=== PATIENT | female | born 1945 | race Caucasian/White ===

== ENCOUNTER 2020-11-07 16:30 | Inpatient (IN) ==
[2020-11-07] MEDS ORDERED: Ondansetron 4 MG/2 ML VIAL IVP PRN (17:51)
[2020-11-07] MEDS ORDERED: Naloxone 0.4 MG/ML INJ IVP PRN (17:51)
[2020-11-07] MEDS ORDERED: *HR* Dextrose 50 % in Water (Vial) 50 ML VIAL IVP PRN (18:00)
[2020-11-07] MEDS ORDERED: D5% in Water 1,000 ML IVC PRN (18:00)
[2020-11-07] MEDS ORDERED: Dextrose Gel 15 GM/37.5 ML TUBE PO PRN ×2 (18:00)
[2020-11-07] MEDS ORDERED: Doxycycline 100 MG in 0.9 % Sodium Chloride Mini Bag 100 ML IVPB SCH (18:00)
[2020-11-07] MEDS ORDERED: Benzonatate 100 MG CAPSULE PO PRN (21:00)
[2020-11-07] MEDS ORDERED: Ibuprofen 400 MG TABLET PO PRN (21:28)
[2020-11-07] MEDS: Ipratropium 1 PUFF INHALER IH SCH ×2 (21:32→23:24)
[2020-11-07] MEDS: Lactobacillus 1 EACH CAP.SPRINK PO SCH (23:12)
[2020-11-07] MEDS: Doxycycline 100 MG in 0.9 % Sodium Chloride Mini Bag 100 ML IVPB SCH (23:12)
[2020-11-07] MEDS: Insulin LISPRO 300 UNITS/3 ML VIAL SUBQ SCH (23:18)
[2020-11-07] MEDS: Melatonin 3 MG TABLET PO PRN (23:25)
[2020-11-08] MEDS: Ipratropium 1 PUFF INHALER IH SCH ×5 (04:01→21:16)
[2020-11-08] MEDS: *HR* Enoxaparin 40 MG/0.4 ML SYRINGE SQ SCH (05:22)
[2020-11-08] MEDS: Budesonide/Formoterol 160/4.5 1 PUFF INH IH SCH ×2 (06:41→21:15)
[2020-11-08] MEDS: Tiotropium 10 INH DOSE IH SCH (06:41)
[2020-11-08 08:25] LABS: Hematocrit 30.5 % (35.3-44.9); Hemoglobin 9.9 g/dL (11.5-15.4); Mean Corpuscular HGB Conc 32.5 g/dL (31.6-35.5); Mean Corpuscular Hemoglobin 29.8 pg (28.0-33.3); Mean Corpuscular Volume 91.9 fL (83.0-100.0); Mean Platelet Volume 10.6 fL (9.4-12.4); Platelet Count 270 K/mcL (140-400); Red Blood Count 3.32 M/mcL (3.82-4.97); Red Cell Distribution Width 15.4 % (11.5-14.5); White Blood Count 11.8 K/mcL (4.3-11.1)
[2020-11-08] MEDS: Insulin LISPRO 300 UNITS/3 ML VIAL SUBQ SCH ×4 (08:33→21:21)
[2020-11-08] MEDS: Loratadine 10 MG TABLET PO SCH (08:45)
[2020-11-08] MEDS: Vitamin E 200 UNIT (90MG) CAPSULE PO SCH (08:45)
[2020-11-08] MEDS: Ascorbic Acid 500 MG TABLET PO SCH (08:45)
[2020-11-08] MEDS: Cholecalciferol (D-3) 1,000 UNIT (25MCG) TABLET PO SCH (08:45)
[2020-11-08] MEDS: Aspirin Enteric Coated 81 MG Tablet PO SCH (08:45)
[2020-11-08] MEDS: Lactobacillus 1 EACH CAP.SPRINK PO SCH ×2 (08:45→21:13)
[2020-11-08] MEDS: *HR* Glimepiride 2 MG TABLET PO SCH (08:46)
[2020-11-08] MEDS ORDERED: Dexamethasone Sodium Phos/PF 10 MG/ML VIAL IVP SCH (09:00)
[2020-11-08 09:06] LABS: BUN/Creatinine Ratio 34 (6-26); Blood Urea Nitrogen 33 mg/dL (8-23); Calcium 8.2 mg/dL (8.6-10.3); Carbon Dioxide 24 mEq/L (23-29); Chloride 104 mEq/L (98-107); Glucose 105 mg/dL (70-105); Osmolality,Calculated 294 (280-300); Potassium 3.4 mEq/L (3.5-5.1); Sodium 138 mEq/L (136-145); eGFR For African Americans > 60 (> 60); eGFR For Non-African Americans 57 (> 60)
[2020-11-08] MEDS: Doxycycline 100 MG in 0.9 % Sodium Chloride Mini Bag 100 ML IVPB SCH (11:52)
[2020-11-08 13:22] LABS: Estimated Average Glucose 163 mg/dl; Hemoglobin A1C 7.3 %
[2020-11-08] MEDS: Doxycycline 100 MG CAPSULE PO SCH (21:13)
[2020-11-08] MEDS: Melatonin 3 MG TABLET PO PRN (21:19)
[2020-11-09] MEDS: Ipratropium 1 PUFF INHALER IH SCH ×4 (00:43→12:52)
[2020-11-09] MEDS: *HR* Enoxaparin 40 MG/0.4 ML SYRINGE SQ SCH (04:32)
[2020-11-09] MEDS: Insulin LISPRO 300 UNITS/3 ML VIAL SUBQ SCH ×2 (08:14→12:25)
[2020-11-09] MEDS: Budesonide/Formoterol 160/4.5 1 PUFF INH IH SCH (08:16)
[2020-11-09] MEDS ORDERED: dexAMETHasone 4 MG TABLET PO SCH (09:00)
[2020-11-09] MEDS: Lactobacillus 1 EACH CAP.SPRINK PO SCH (09:28)
[2020-11-09] MEDS: Vitamin E 200 UNIT (90MG) CAPSULE PO SCH (09:28)
[2020-11-09] MEDS: Tiotropium 10 INH DOSE IH SCH (09:28)
[2020-11-09] MEDS: Ascorbic Acid 500 MG TABLET PO SCH (09:29)
[2020-11-09] MEDS: Doxycycline 100 MG CAPSULE PO SCH (09:29)
[2020-11-09] MEDS: Cholecalciferol (D-3) 1,000 UNIT (25MCG) TABLET PO SCH (09:29)
[2020-11-09] MEDS: Aspirin Enteric Coated 81 MG Tablet PO SCH (09:29)
[2020-11-09] MEDS: Loratadine 10 MG TABLET PO SCH (09:30)
[2020-11-09] MEDS: *HR* Glimepiride 2 MG TABLET PO SCH (09:30)
[2020-11-09] MEDS ORDERED: Fluticasone Propionate Nasal 50 MCG/SPRAY BOTTLE NS SCH (14:45)
[2020-11-09 15:02] VITALS: BP 120/69
== END 2020-11-09 15:58 | disposition other institution (70) | DRG 177 ==
LOC: INPGRE 21:08
PROVIDERS: ADMIT Family Medicine; ATTEND Family Medicine

== ENCOUNTER 2020-11-08 19:02 | Inpatient (IN) ==
[2020-11-09] MEDS ORDERED: *HR* Dextrose 50 % in Water (Vial) 50 ML VIAL IVP PRN (16:23)
[2020-11-09] MEDS ORDERED: Dextrose Gel 15 GM/37.5 ML TUBE PO PRN ×2 (16:23)
[2020-11-09] MEDS ORDERED: D5% in Water 1,000 ML IVC PRN (16:23)
[2020-11-09] MEDS ORDERED: DEXAMETHASONE 1.5 MG PO SCH (16:30)
[2020-11-09] MEDS ORDERED: Ondansetron 4 MG/2 ML VIAL IVP PRN (16:33)
[2020-11-09] MEDS ORDERED: Naloxone 0.4 MG/ML INJ IVP PRN (16:33)
[2020-11-09] MEDS: Ipratropium 1 PUFF INHALER IH SCH ×2 (16:54→20:31)
[2020-11-09] MEDS: Insulin LISPRO 300 UNITS/3 ML VIAL SUBQ SCH ×2 (18:38→23:08)
[2020-11-09] MEDS: Budesonide/Formoterol 160/4.5 1 PUFF INH IH SCH (20:32)
[2020-11-09] MEDS: Doxycycline 100 MG CAPSULE PO SCH (22:51)
[2020-11-09] MEDS: Melatonin 3 MG TABLET PO PRN (22:51)
[2020-11-09] MEDS: Lactobacillus 1 EACH CAP.SPRINK PO SCH (22:52)
[2020-11-10] MEDS: Ipratropium 1 PUFF INHALER IH SCH ×7 (00:30→23:51)
[2020-11-10] MEDS: *HR* Enoxaparin 40 MG/0.4 ML SYRINGE SQ SCH (07:05)
[2020-11-10] MEDS: Insulin LISPRO 300 UNITS/3 ML VIAL SUBQ SCH ×4 (08:39→21:38)
[2020-11-10] MEDS: Budesonide/Formoterol 160/4.5 1 PUFF INH IH SCH ×2 (08:57→20:05)
[2020-11-10] MEDS ORDERED: NON-FORMULARY MEDICATION 1 EACH EACH (Fluticasone/Umeclidin/Vilanter [Trelegy Ellipta 100- IH SCH (09:00)
[2020-11-10] MEDS: Loratadine 10 MG TABLET PO SCH (09:43)
[2020-11-10] MEDS: Cholecalciferol (D-3) 1,000 UNIT (25MCG) TABLET PO SCH (09:44)
[2020-11-10] MEDS: Aspirin Enteric Coated 81 MG Tablet PO SCH (09:44)
[2020-11-10] MEDS: Ascorbic Acid 500 MG TABLET PO SCH (09:44)
[2020-11-10] MEDS: Vitamin E 200 UNIT (90MG) CAPSULE PO SCH (09:44)
[2020-11-10] MEDS: Lactobacillus 1 EACH CAP.SPRINK PO SCH ×2 (09:44→21:35)
[2020-11-10] MEDS: dexAMETHasone 4 MG TABLET PO SCH (09:44)
[2020-11-10] MEDS: Doxycycline 100 MG CAPSULE PO SCH ×2 (09:45→21:35)
[2020-11-10] MEDS: *HR* Glimepiride 2 MG TABLET PO SCH (09:55)
[2020-11-10] MEDS ORDERED: Tiotropium 10 INH DOSE IH SCH (10:00)
[2020-11-10] MEDS: Fluticasone Propionate Nasal 50 MCG/SPRAY BOTTLE NS SCH (10:39)
[2020-11-10] MEDS: Melatonin 3 MG TABLET PO PRN (21:32)
[2020-11-10] MEDS: Benzonatate 100 MG CAPSULE PO PRN (21:35)
[2020-11-11] MEDS: Ipratropium 1 PUFF INHALER IH SCH ×5 (04:10→22:18)
[2020-11-11 05:25] LABS: Basophils # 0.1 K/mcL (0.0-0.2); Basophils % 0.4 %; Eosinophils % 0.2 %; Hematocrit 30.5 % (35.3-44.9); Hemoglobin 9.7 g/dL (11.5-15.4); Lymphocytes # 2.6 K/mcL (0.6-4.6); Lymphocytes % 17.4 %; Mean Corpuscular HGB Conc 31.8 g/dL (31.6-35.5); Mean Corpuscular Hemoglobin 29.8 pg (28.0-33.3); Mean Corpuscular Volume 93.6 fL (83.0-100.0); Mean Platelet Volume 11.2 fL (9.4-12.4); Monocytes # 1.1 K/mcL (0.0-1.3); Monocytes % 7.1 %; Neutrophils # 10.5 K/mcL (1.6-8.9); Nucleated Red Blood Cells 0.2 /100 WBC (0); Red Blood Count 3.26 M/mcL (3.82-4.97); Red Cell Distribution Width 15.6 % (11.5-14.5); Segmented Neutrophils % 70.9 %; White Blood Count 14.8 K/mcL (4.3-11.1)
[2020-11-11 05:29] LABS: Platelet Count 181 K/mcL (140-400)
[2020-11-11 05:37] LABS: BUN/Creatinine Ratio 40 (6-26); Blood Urea Nitrogen 36 mg/dL (8-23); Calcium 8.2 mg/dL (8.6-10.3); Carbon Dioxide 22 mEq/L (23-29); Chloride 105 mEq/L (98-107); Glucose 82 mg/dL (70-105); Osmolality,Calculated 293 (280-300); Potassium 3.5 mEq/L (3.5-5.1); Sodium 138 mEq/L (136-145); eGFR For African Americans > 60 (> 60); eGFR For Non-African Americans > 60 (> 60)
[2020-11-11] MEDS: *HR* Enoxaparin 40 MG/0.4 ML SYRINGE SQ SCH (06:59)
[2020-11-11] MEDS: Budesonide/Formoterol 160/4.5 1 PUFF INH IH SCH ×2 (08:18→22:18)
[2020-11-11] MEDS: Insulin LISPRO 300 UNITS/3 ML VIAL SUBQ SCH ×4 (08:49→22:08)
[2020-11-11] MEDS: dexAMETHasone 4 MG TABLET PO SCH (09:05)
[2020-11-11] MEDS: Vitamin E 200 UNIT (90MG) CAPSULE PO SCH (09:06)
[2020-11-11] MEDS: Loratadine 10 MG TABLET PO SCH (09:06)
[2020-11-11] MEDS: Aspirin Enteric Coated 81 MG Tablet PO SCH (09:06)
[2020-11-11] MEDS: Ascorbic Acid 500 MG TABLET PO SCH (09:06)
[2020-11-11] MEDS: Fluticasone Propionate Nasal 50 MCG/SPRAY BOTTLE NS SCH (09:07)
[2020-11-11] MEDS: Doxycycline 100 MG CAPSULE PO SCH ×2 (09:07→22:33)
[2020-11-11] MEDS: Lactobacillus 1 EACH CAP.SPRINK PO SCH ×2 (09:07→22:34)
[2020-11-11] MEDS: Cholecalciferol (D-3) 1,000 UNIT (25MCG) TABLET PO SCH (09:07)
[2020-11-11] MEDS: *HR* Glimepiride 2 MG TABLET PO SCH (09:59)
[2020-11-11] MEDS: Benzonatate 100 MG CAPSULE PO PRN (22:33)
[2020-11-11] MEDS: Melatonin 3 MG TABLET PO PRN (22:37)
[2020-11-12] MEDS: Ipratropium 1 PUFF INHALER IH SCH ×4 (03:43→19:44)
[2020-11-12] MEDS: *HR* Enoxaparin 40 MG/0.4 ML SYRINGE SQ SCH (06:00)
[2020-11-12] MEDS: Aspirin Enteric Coated 81 MG Tablet PO SCH (08:01)
[2020-11-12] MEDS: Lactobacillus 1 EACH CAP.SPRINK PO SCH ×2 (08:01→21:43)
[2020-11-12] MEDS: Ascorbic Acid 500 MG TABLET PO SCH (08:01)
[2020-11-12] MEDS: Vitamin E 200 UNIT (90MG) CAPSULE PO SCH (08:02)
[2020-11-12] MEDS: dexAMETHasone 4 MG TABLET PO SCH (08:02)
[2020-11-12] MEDS: Loratadine 10 MG TABLET PO SCH (08:02)
[2020-11-12] MEDS: Fluticasone Propionate Nasal 50 MCG/SPRAY BOTTLE NS SCH (08:03)
[2020-11-12] MEDS: Insulin LISPRO 300 UNITS/3 ML VIAL SUBQ SCH ×4 (08:03→21:45)
[2020-11-12] MEDS: Cholecalciferol (D-3) 1,000 UNIT (25MCG) TABLET PO SCH (08:04)
[2020-11-12] MEDS: *HR* Glimepiride 2 MG TABLET PO SCH (08:11)
[2020-11-12] MEDS: Benzonatate 100 MG CAPSULE PO PRN ×2 (08:12→21:37)
[2020-11-12] MEDS: Budesonide/Formoterol 160/4.5 1 PUFF INH IH SCH ×2 (08:58→19:46)
[2020-11-12] MEDS: Doxycycline 100 MG CAPSULE PO SCH ×2 (12:54→21:40)
[2020-11-12] MEDS: Melatonin 3 MG TABLET PO PRN (21:38)
[2020-11-13 04:24] LABS: Hematocrit 27.1 % (35.3-44.9); Hemoglobin 8.8 g/dL (11.5-15.4); Mean Corpuscular HGB Conc 32.5 g/dL (31.6-35.5); Mean Corpuscular Hemoglobin 30.1 pg (28.0-33.3); Mean Corpuscular Volume 92.8 fL (83.0-100.0); Mean Platelet Volume 10.3 fL (9.4-12.4); Platelet Count 194 K/mcL (140-400); Red Blood Count 2.92 M/mcL (3.82-4.97); Red Cell Distribution Width 15.8 % (11.5-14.5)
[2020-11-13 04:41] LABS: Alanine Aminotransferase 16 Units/L (7-52); Albumin 2.5 g/dL (3.5-5.7); Albumin/Globulin Ratio 1.2 (1.1-2.2); Alkaline Phosphatase 37 Units/L (34-104); Aspartate Amino Transferase 10 Units/L (13-39); BUN/Creatinine Ratio 39 (6-26); Bilirubin,Total 0.5 mg/dL (0.3-1.0); Blood Urea Nitrogen 42 mg/dL (8-23); Calcium 7.8 mg/dL (8.6-10.3); Carbon Dioxide 23 mEq/L (23-29); Chloride 106 mEq/L (98-107); Globulin 2.1 g/dL (2.4-3.5); Glucose 67 mg/dL (70-105); Osmolality,Calculated 291 (280-300); Potassium 3.7 mEq/L (3.5-5.1); Sodium 136 mEq/L (136-145); Total Protein 4.6 g/dL (6.4-8.9); eGFR For African Americans 59 (> 60); eGFR For Non-African Americans 49 (> 60)
[2020-11-13] MEDS: Ipratropium 1 PUFF INHALER IH SCH ×7 (04:58→22:53)
[2020-11-13] MEDS: *HR* Enoxaparin 40 MG/0.4 ML SYRINGE SQ SCH (05:14)
[2020-11-13] MEDS: Budesonide/Formoterol 160/4.5 1 PUFF INH IH SCH ×2 (07:54→20:03)
[2020-11-13] MEDS: Insulin LISPRO 300 UNITS/3 ML VIAL SUBQ SCH ×4 (09:31→21:38)
[2020-11-13] MEDS: Vitamin E 200 UNIT (90MG) CAPSULE PO SCH (09:34)
[2020-11-13] MEDS: Cholecalciferol (D-3) 1,000 UNIT (25MCG) TABLET PO SCH (09:34)
[2020-11-13] MEDS: *HR* Glimepiride 2 MG TABLET PO SCH (09:34)
[2020-11-13] MEDS: Lactobacillus 1 EACH CAP.SPRINK PO SCH ×2 (09:34→20:07)
[2020-11-13] MEDS: dexAMETHasone 4 MG TABLET PO SCH (09:35)
[2020-11-13] MEDS: Aspirin Enteric Coated 81 MG Tablet PO SCH (09:35)
[2020-11-13] MEDS: Loratadine 10 MG TABLET PO SCH (09:36)
[2020-11-13] MEDS: Ascorbic Acid 500 MG TABLET PO SCH (09:36)
[2020-11-13] MEDS: Fluticasone Propionate Nasal 50 MCG/SPRAY BOTTLE NS SCH (10:11)
[2020-11-13 10:12] LABS: C-Reactive Protein < 5 mg/L (Less than 10)
[2020-11-13 10:30] LABS: Ferritin 161 ng/mL (10-120)
[2020-11-13] MEDS ORDERED: levoFLOXacin 750 MG/150 ML 750 MG/150 ML BAG IVPB SCH (14:45)
[2020-11-13] MEDS ORDERED: levoFLOXacin 500 MG TABLET PO ONE (16:00)
[2020-11-13] MEDS: Acyclovir 200 MG CAPSULE PO SCH ×2 (16:52→20:07)
[2020-11-13] MEDS: Magnesium Oxide 400 MG TABLET PO SCH (20:09)
[2020-11-13] MEDS ORDERED: Magnesium Oxide 400 MG TABLET PO SCH (21:00)
[2020-11-13] MEDS: Melatonin 3 MG TABLET PO PRN (21:40)
[2020-11-14] MEDS: Ibuprofen 400 MG TABLET PO PRN ×2 (02:43→21:07)
[2020-11-14] MEDS: Ipratropium 1 PUFF INHALER IH SCH ×5 (02:58→20:21)
[2020-11-14 05:46] LABS: Hematocrit 27.7 % (35.3-44.9); Mean Corpuscular HGB Conc 32.5 g/dL (31.6-35.5); Mean Corpuscular Hemoglobin 29.9 pg (28.0-33.3); Mean Platelet Volume 10.5 fL (9.4-12.4); Platelet Count 179 K/mcL (140-400); Red Blood Count 3.01 M/mcL (3.82-4.97); Red Cell Distribution Width 16.2 % (11.5-14.5); White Blood Count 11.3 K/mcL (4.3-11.1)
[2020-11-14] MEDS: *HR* Enoxaparin 40 MG/0.4 ML SYRINGE SQ SCH (06:01)
[2020-11-14 06:06] LABS: Alanine Aminotransferase 18 Units/L (7-52); Albumin 2.7 g/dL (3.5-5.7); Albumin/Globulin Ratio 1.4 (1.1-2.2); Alkaline Phosphatase 40 Units/L (34-104); Aspartate Amino Transferase 11 Units/L (13-39); BUN/Creatinine Ratio 43 (6-26); Bilirubin,Total 0.6 mg/dL (0.3-1.0); Blood Urea Nitrogen 46 mg/dL (8-23); Calcium 7.9 mg/dL (8.6-10.3); Carbon Dioxide 23 mEq/L (23-29); Chloride 103 mEq/L (98-107); Glucose 73 mg/dL (70-105); Magnesium 1.2 mg/dL (1.6-2.6); Osmolality,Calculated 290 (280-300); Potassium 3.5 mEq/L (3.5-5.1); Sodium 135 mEq/L (136-145); Total Protein 4.7 g/dL (6.4-8.9); eGFR For African Americans > 60 (> 60); eGFR For Non-African Americans 50 (> 60)
[2020-11-14] MEDS: Insulin LISPRO 300 UNITS/3 ML VIAL SUBQ SCH ×4 (07:35→21:06)
[2020-11-14] MEDS: Budesonide/Formoterol 160/4.5 1 PUFF INH IH SCH ×2 (07:53→20:21)
[2020-11-14] MEDS: Aspirin Enteric Coated 81 MG Tablet PO SCH (08:32)
[2020-11-14] MEDS: Lactobacillus 1 EACH CAP.SPRINK PO SCH ×2 (08:32→21:06)
[2020-11-14] MEDS: Vitamin E 200 UNIT (90MG) CAPSULE PO SCH (08:33)
[2020-11-14] MEDS: Ascorbic Acid 500 MG TABLET PO SCH (08:33)
[2020-11-14] MEDS: Cholecalciferol (D-3) 1,000 UNIT (25MCG) TABLET PO SCH (08:33)
[2020-11-14] MEDS: Acyclovir 200 MG CAPSULE PO SCH ×3 (08:33→21:07)
[2020-11-14] MEDS: dexAMETHasone 4 MG TABLET PO SCH (08:33)
[2020-11-14] MEDS: Loratadine 10 MG TABLET PO SCH (08:34)
[2020-11-14] MEDS: Magnesium Oxide 400 MG TABLET PO SCH ×3 (08:34→21:07)
[2020-11-14] MEDS: Fluticasone Propionate Nasal 50 MCG/SPRAY BOTTLE NS SCH (08:34)
[2020-11-14] MEDS: *HR* Glimepiride 2 MG TABLET PO SCH (08:37)
[2020-11-14] MEDS: levoFLOXacin 250 MG TABLET PO SCH (16:35)
[2020-11-14] MEDS: Melatonin 3 MG TABLET PO PRN (21:07)
[2020-11-15] MEDS: Ipratropium 1 PUFF INHALER IH SCH ×6 (00:03→20:14)
[2020-11-15] MEDS: *HR* Enoxaparin 40 MG/0.4 ML SYRINGE SQ SCH (05:03)
[2020-11-15] MEDS: Budesonide/Formoterol 160/4.5 1 PUFF INH IH SCH ×2 (07:24→20:14)
[2020-11-15] MEDS: Insulin LISPRO 300 UNITS/3 ML VIAL SUBQ SCH ×4 (07:40→20:37)
[2020-11-15] MEDS: Magnesium Oxide 400 MG TABLET PO SCH ×3 (08:05→20:37)
[2020-11-15] MEDS: Cholecalciferol (D-3) 1,000 UNIT (25MCG) TABLET PO SCH (08:06)
[2020-11-15] MEDS: Aspirin Enteric Coated 81 MG Tablet PO SCH (08:06)
[2020-11-15] MEDS: Lactobacillus 1 EACH CAP.SPRINK PO SCH ×2 (08:06→20:37)
[2020-11-15] MEDS: Ascorbic Acid 500 MG TABLET PO SCH (08:06)
[2020-11-15] MEDS: Acyclovir 200 MG CAPSULE PO SCH ×3 (08:06→20:37)
[2020-11-15] MEDS: Vitamin E 200 UNIT (90MG) CAPSULE PO SCH (08:06)
[2020-11-15] MEDS: dexAMETHasone 4 MG TABLET PO SCH (08:06)
[2020-11-15] MEDS: Loratadine 10 MG TABLET PO SCH (08:08)
[2020-11-15] MEDS: *HR* Glimepiride 2 MG TABLET PO SCH (08:08)
[2020-11-15] MEDS: Fluticasone Propionate Nasal 50 MCG/SPRAY BOTTLE NS SCH (08:10)
[2020-11-15] MEDS: levoFLOXacin 250 MG TABLET PO SCH (16:40)
[2020-11-15] MEDS: Melatonin 3 MG TABLET PO PRN (20:37)
[2020-11-15] MEDS: Ibuprofen 400 MG TABLET PO PRN (20:38)
[2020-11-16] MEDS: Ipratropium 1 PUFF INHALER IH SCH ×6 (00:02→20:07)
[2020-11-16] MEDS: *HR* Enoxaparin 40 MG/0.4 ML SYRINGE SQ SCH (05:13)
[2020-11-16] MEDS: Budesonide/Formoterol 160/4.5 1 PUFF INH IH SCH ×2 (07:41→20:07)
[2020-11-16] MEDS: Insulin LISPRO 300 UNITS/3 ML VIAL SUBQ SCH ×4 (08:13→22:41)
[2020-11-16] MEDS: Magnesium Oxide 400 MG TABLET PO SCH ×3 (08:14→22:37)
[2020-11-16] MEDS: Cholecalciferol (D-3) 1,000 UNIT (25MCG) TABLET PO SCH (08:14)
[2020-11-16] MEDS: dexAMETHasone 4 MG TABLET PO SCH (08:15)
[2020-11-16] MEDS: Aspirin Enteric Coated 81 MG Tablet PO SCH (08:15)
[2020-11-16] MEDS: Lactobacillus 1 EACH CAP.SPRINK PO SCH ×2 (08:15→22:37)
[2020-11-16] MEDS: Acyclovir 200 MG CAPSULE PO SCH ×3 (08:15→22:36)
[2020-11-16] MEDS: Loratadine 10 MG TABLET PO SCH (08:15)
[2020-11-16] MEDS: Vitamin E 200 UNIT (90MG) CAPSULE PO SCH (08:15)
[2020-11-16] MEDS: Ascorbic Acid 500 MG TABLET PO SCH (08:15)
[2020-11-16] MEDS: *HR* Glimepiride 2 MG TABLET PO SCH (08:27)
[2020-11-16] MEDS: Fluticasone Propionate Nasal 50 MCG/SPRAY BOTTLE NS SCH (08:28)
[2020-11-16] MEDS: levoFLOXacin 250 MG TABLET PO SCH (15:41)
[2020-11-16] MEDS: polyethylene glycoL 3350 17 GM POWD.PACK PO SCH (17:28)
[2020-11-16] MEDS: Melatonin 3 MG TABLET PO PRN (22:37)
[2020-11-17] MEDS: Ipratropium 1 PUFF INHALER IH SCH ×5 (00:03→22:11)
[2020-11-17 05:11] LABS: Basophils % 0.2 %; Eosinophils # 0.1 K/mcL (0.0-0.6); Eosinophils % 1.5 %; Hematocrit 26.2 % (35.3-44.9); Hemoglobin 8.6 g/dL (11.5-15.4); Immature Granulocytes % 1.9 % (0-4); Lymphocytes # 2.4 K/mcL (0.6-4.6); Lymphocytes % 25.9 %; Mean Corpuscular HGB Conc 32.8 g/dL (31.6-35.5); Mean Corpuscular Hemoglobin 30.8 pg (28.0-33.3); Mean Corpuscular Volume 93.9 fL (83.0-100.0); Mean Platelet Volume 10.5 fL (9.4-12.4); Monocytes # 0.7 K/mcL (0.0-1.3); Monocytes % 7.4 %; Neutrophils # 5.9 K/mcL (1.6-8.9); Nucleated Red Blood Cells 0.7 /100 WBC (0); Platelet Count 147 K/mcL (140-400); Red Blood Count 2.79 M/mcL (3.82-4.97); Red Cell Distribution Width 16.7 % (11.5-14.5); Segmented Neutrophils % 63.1 %; White Blood Count 9.4 K/mcL (4.3-11.1)
[2020-11-17 05:28] LABS: BUN/Creatinine Ratio 34 (6-26); Blood Urea Nitrogen 34 mg/dL (8-23); Carbon Dioxide 25 mEq/L (23-29); Chloride 106 mEq/L (98-107); Glucose 73 mg/dL (70-105); Osmolality,Calculated 294 (280-300); Potassium 3.5 mEq/L (3.5-5.1); Sodium 139 mEq/L (136-145); eGFR For African Americans > 60 (> 60); eGFR For Non-African Americans 55 (> 60)
[2020-11-17] MEDS: *HR* Enoxaparin 40 MG/0.4 ML SYRINGE SQ SCH (06:37)
[2020-11-17] MEDS: Insulin LISPRO 300 UNITS/3 ML VIAL SUBQ SCH ×4 (08:25→22:41)
[2020-11-17] MEDS: *HR* Glimepiride 2 MG TABLET PO SCH (08:27)
[2020-11-17] MEDS: Loratadine 10 MG TABLET PO SCH (08:27)
[2020-11-17] MEDS: Ascorbic Acid 500 MG TABLET PO SCH (08:27)
[2020-11-17] MEDS: Vitamin E 200 UNIT (90MG) CAPSULE PO SCH (08:27)
[2020-11-17] MEDS: Cholecalciferol (D-3) 1,000 UNIT (25MCG) TABLET PO SCH (08:27)
[2020-11-17] MEDS: Magnesium Oxide 400 MG TABLET PO SCH ×3 (08:27→22:39)
[2020-11-17] MEDS: Acyclovir 200 MG CAPSULE PO SCH ×3 (08:27→22:39)
[2020-11-17] MEDS: Aspirin Enteric Coated 81 MG Tablet PO SCH (08:27)
[2020-11-17] MEDS: Lactobacillus 1 EACH CAP.SPRINK PO SCH ×2 (08:27→22:39)
[2020-11-17] MEDS: dexAMETHasone 4 MG TABLET PO SCH (08:28)
[2020-11-17] MEDS: polyethylene glycoL 3350 17 GM POWD.PACK PO SCH (08:28)
[2020-11-17] MEDS: Fluticasone Propionate Nasal 50 MCG/SPRAY BOTTLE NS SCH (08:28)
[2020-11-17] MEDS: Budesonide/Formoterol 160/4.5 1 PUFF INH IH SCH ×2 (08:46→22:11)
[2020-11-17] MEDS ORDERED: Bisacodyl 10 MG RECTAL SUPPOSITORY RC PRN (10:37)
[2020-11-17] MEDS ORDERED: Budesonide/Formoterol 160/4.5 1 PUFF INH IH PRN (15:54)
[2020-11-17] MEDS ORDERED: Ipratropium 1 PUFF INHALER IH PRN (15:58)
[2020-11-17] MEDS: levoFLOXacin 250 MG TABLET PO SCH (16:24)
[2020-11-17] MEDS: Melatonin 3 MG TABLET PO PRN (22:40)
[2020-11-17] MEDS: Acetaminophen 325 MG TABLET PO PRN (22:40)
[2020-11-18] MEDS: *HR* Enoxaparin 40 MG/0.4 ML SYRINGE SQ SCH (06:03)
[2020-11-18] MEDS: Aspirin Enteric Coated 81 MG Tablet PO SCH (08:37)
[2020-11-18] MEDS: Lactobacillus 1 EACH CAP.SPRINK PO SCH (08:37)
[2020-11-18] MEDS: Cholecalciferol (D-3) 1,000 UNIT (25MCG) TABLET PO SCH (08:37)
[2020-11-18] MEDS: Loratadine 10 MG TABLET PO SCH (08:37)
[2020-11-18] MEDS: Insulin LISPRO 300 UNITS/3 ML VIAL SUBQ SCH ×2 (08:37→12:01)
[2020-11-18] MEDS: Acyclovir 200 MG CAPSULE PO SCH (08:38)
[2020-11-18] MEDS: Magnesium Oxide 400 MG TABLET PO SCH (08:38)
[2020-11-18] MEDS: dexAMETHasone 4 MG TABLET PO SCH (08:38)
[2020-11-18] MEDS: Ascorbic Acid 500 MG TABLET PO SCH (08:38)
[2020-11-18] MEDS: Vitamin E 200 UNIT (90MG) CAPSULE PO SCH (08:38)
[2020-11-18] MEDS: Fluticasone Propionate Nasal 50 MCG/SPRAY BOTTLE NS SCH (08:43)
[2020-11-18] MEDS: polyethylene glycoL 3350 17 GM POWD.PACK PO SCH (08:43)
[2020-11-18] MEDS: *HR* Glimepiride 2 MG TABLET PO SCH (08:43)
[2020-11-18 08:47] VITALS: BP 147/66
[2020-11-18] MEDS: Ipratropium 1 PUFF INHALER IH SCH (10:11)
[2020-11-18] MEDS: Budesonide/Formoterol 160/4.5 1 PUFF INH IH SCH (10:14)
[2020-11-18] MEDS: Acetaminophen 325 MG TABLET PO PRN (12:46)
== END 2020-11-18 14:43 | disposition home or self-care (01) | DRG 177 ==
LOC: INPGRE 11-09 16:07
PROVIDERS: ADMIT Family Medicine; ATTEND Family Medicine